=== PATIENT | female | born 1955 | race Caucasian/White ===

== ENCOUNTER 2017-01-28 09:36 | Emergency (ER) | payer MEDICARE ==
[~2017-01-28] VITALS: Ht 160 cm; Wt 79.0 kg
[2017-01-28] MEDS ORDERED: TYLENOL # 31 TA1 PO (09:46)
[2017-01-28] MEDS ORDERED: MECLIZINE25 MG PO (09:47)
[2017-01-28] MEDS ORDERED: CELEBREX100 M1 PO (09:47)
[2017-01-28] MEDS ORDERED: ZOFRAN ODT4 MG PO (09:48)
[2017-01-28] MEDS ORDERED: SIMVASTATIN40 MG PO (09:49)
[2017-01-28] MEDS ORDERED: PRILOSEC20 MG PO (09:49)
[2017-01-28] MEDS ORDERED: SONATA5 MG PO (09:49)
[2017-01-28 10:19] VITALS: BP 139/87
[2017-01-28] MEDS ORDERED: BACTRIM DS1 TAB PO (10:19)
[2017-01-28] MEDS ORDERED: CEPHALEXIN500 MG PO (10:19)
== END 2017-01-28 10:24 | disposition home or self-care (01) ==
LOC: ED 09:36
PROC: 0H96XZZ Drainage of Back Skin, External Approach (ICD-10-PCS; principal; 2017-01-28)
DX: L02.212 Cutaneous abscess of back [any part, except buttock and flank] (principal); B95.7 Other staphylococcus as the cause of diseases classified elsewhere; M48.02 Spinal stenosis, cervical region; M19.90 Unspecified osteoarthritis, unspecified site

== ENCOUNTER 2017-01-30 09:25 | Emergency (ER) | payer MEDICARE ==
[~2017-01-30] VITALS: Ht 160 cm; Wt 70.0 kg
[~2017-01-30 09:25] MED LIST: BACTRIM DS1 TAB PO; CELEBREX100 M1 PO; CEPHALEXIN500 MG PO; MECLIZINE25 MG PO; PRILOSEC20 MG PO; SIMVASTATIN40 MG PO; SONATA5 MG PO; TYLENOL # 31 TA1 PO; ZOFRAN ODT4 MG PO
[2017-01-30 10:01] VITALS: BP 136/86
== END 2017-01-30 10:01 | disposition home or self-care (01) ==
LOC: ED 09:25
DX: L02.212 Cutaneous abscess of back [any part, except buttock and flank] (principal); Z48.01 Encounter for change or removal of surgical wound dressing